=== PATIENT | male | born 1960 | race Caucasian/White ===

== ENCOUNTER 2019-05-08 22:19 | Inpatient (IN) | payer MEDICAID, OTHER ==
[~2019-05-08] VITALS: Ht 172.7 cm; Wt 71.2 kg
[2019-05-08] MEDS ORDERED: SODIUM CHLORIDE 0.9% 1,000 ML IV ONE (22:40)
[2019-05-08 23:08] LABS: BASOPHILS % 0.6 % (0.0-2.0); HEMATOCRIT. 36.8 % (42.0-52.0); HEMOGLOBIN. 12.1 g/dL (14.0-18.0); LYMPHOCYTES % 18.6 % (20.0-50.0); MEAN CORPUSCULAR HEMOGLOBIN 28.2 pg (28.0-32.0); MEAN CORPUSCULAR VOLUME 86.2 fL (80.0-94.0); MEAN PLATELET VOLUME 7.4 fl (7.4-10.4); MONOCYTES % 6.6 % (2.0-8.0); NEUTROPHILS % 72.2 % (40.0-76.0); PLATELET 462 x1000/uL (130-400); RED BLOOD CELL COUNT 4.27 mill/uL (4.7-6.1); RED CELL DISTRIBUTION WIDTH 15.4 % (11.6-14.6)
[2019-05-08 23:13] LABS: CHLORIDE 106 mEq/L (98-107)
[2019-05-08 23:17] LABS: CLARITY URINE CLEAR (CLEAR); COLOR URINE YELLOW (YELLOW); KETONES URINE NEGATIVE (NEGATIVE); LEUKOCYTE ESTERASE URINE NEGATIVE (NEGATIVE); NITRITE URINE NEGATIVE (NEGATIVE); OCCULT BLOOD URINE NEGATIVE (NEGATIVE); PH URINE 5.5 (4.5-8.0); PROTEIN URINE NEGATIVE (NEGATIVE); SPECIFIC GRAVITY URINE 1.016 (1.005-1.030); UROBILINOGEN URINE 0.2 E.U./dL (0.2-1.0)
[2019-05-08 23:18] LABS: ETHANOL BLOOD < 10 mg/dL
[2019-05-08 23:20] LABS: LDL CHOLESTEROL 111 mg/dL (5-100)
[2019-05-08 23:29] LABS: *BARBITURATES SCREEN URINE NEGATIVE (NEGATIVE); *BENZODIAZEPINES SCREEN URINE NEGATIVE (NEGATIVE); *COCAINE SCREEN URINE NEGATIVE (NEGATIVE); METHADONE URINE SCREEN NEGATIVE (NEGATIVE); OPIATES URINE SCREEN NEGATIVE (NEGATIVE)
[2019-05-08 23:30] LABS: *AMPHETAMINES SCREEN URINE NEGATIVE (NEGATIVE); CANNABINOID URINE SCREEN NEGATIVE (NEGATIVE); PHENCYCLIDINE URINE SCREEN NEGATIVE (NEGATIVE)
[2019-05-09] VITALS (15 sets, daily range): BP systolic 89–129; BP diastolic 53–84
[2019-05-09] MEDS ORDERED: IOHEXOL-350 100 ML BOTTLE ONE (00:52)
[2019-05-09] MEDS ORDERED: ATOR10TA PO (05:30)
[2019-05-09] MEDS ORDERED: COR3 PO (05:30)
[2019-05-09] MEDS ORDERED: LISI2.5T47 MT (05:30)
[2019-05-09] MEDS ORDERED: DEXTROSE 50% WATER 50ML SYRINGE IV PRN (06:00)
[2019-05-09] MEDS ORDERED: ONDANSETRON HCL 4MG/2ML INJ IV PRN (06:00)
[2019-05-09] MEDS ORDERED: ACETAMINOPHEN 325MG TABLET PO PRN (06:00)
[2019-05-09] MEDS: BLOOD SUGAR DIAGNOSTIC STRIP TEST SCH ×4 (07:30→20:46)
[2019-05-09] MEDS: INSULIN LISPRO 100 UNITS/ML SUBCUT SCH ×4 (08:00→20:46)
[2019-05-09] MEDS: CARVEDILOL 3.125 MG TABLET PO SCH ×2 (08:40→20:45)
[2019-05-09] MEDS: ASPIRIN 325MG EC TABLET PO SCH (08:41)
[2019-05-09] MEDS: FAMOTIDINE 20MG TABLET PO SCH ×2 (08:41→20:46)
[2019-05-09] MEDS: AZITHROMYCIN 500 MG TABLET PO SCH (08:41)
[2019-05-09] MEDS: CEFTRIAXONE 1 G PREMIX 50 ML IV SCH (10:29)
[2019-05-09] MEDS: ENOXAPARIN 40MG/0.4ML SYR SUBCUT SCH (13:23)
[2019-05-09] MEDS ORDERED: ATORVASTATIN CALCIUM 40MG TABLET PO SCH (21:00)
[2019-05-10] VITALS (10 sets, daily range): BP systolic 89–123; BP diastolic 59–78
[2019-05-10] MEDS: BLOOD SUGAR DIAGNOSTIC STRIP TEST SCH ×2 (07:30→13:12)
[2019-05-10] MEDS: INSULIN LISPRO 100 UNITS/ML SUBCUT SCH ×2 (08:00→13:00)
[2019-05-10] MEDS: AZITHROMYCIN 500 MG TABLET PO SCH (08:37)
[2019-05-10] MEDS: CARVEDILOL 3.125 MG TABLET PO SCH (08:38)
[2019-05-10] MEDS: ASPIRIN 325MG EC TABLET PO SCH (08:38)
[2019-05-10] MEDS: FAMOTIDINE 20MG TABLET PO SCH (08:38)
[2019-05-10] MEDS: CEFTRIAXONE 1 G PREMIX 50 ML IV SCH (08:38)
[2019-05-10] MEDS: ENOXAPARIN 40MG/0.4ML SYR SUBCUT SCH (08:39)
== END 2019-05-10 16:22 | disposition home or self-care (01) | DRG 82 ==
LOC: ER 22:19 → EDBEDREQDT 05-09 01:27 → EDBEDREQTM 05-09 01:27 → EDBEDREQ 05-09 01:27 → ENRESERV 05-09 02:58 → 5EST 05-09 05:15
PROVIDERS: ADMIT Internal Medicine; ATTEND Internal Medicine
DX: H53.121 Transient visual loss, right eye (principal); I42.9 Cardiomyopathy, unspecified; E44.1 Mild protein-calorie malnutrition; G45.9 Transient cerebral ischemic attack, unspecified; D64.9 Anemia, unspecified; E11.9 Type 2 diabetes mellitus without complications; R20.0 Anesthesia of skin; E78.00 Pure hypercholesterolemia, unspecified; E78.5 Hyperlipidemia, unspecified; E87.6 Hypokalemia; I10 Essential (primary) hypertension; I25.10 Atherosclerotic heart disease of native coronary artery without angina pectoris; Z95.810 Presence of automatic (implantable) cardiac defibrillator; Z68.23 Body mass index [BMI] 23.0-23.9, adult
CPT/HCPCS: 36415; 70496; 70498; 71045; 80305; 80320; 81003; 82962; 83036; 83721; 84443; 84484; 93306; 96361; 96365; 97162; 99291; J0696; J1650; J7030; Q9967; G0480